=== PATIENT | female | born 1995 | race African-American/Black ===

== ENCOUNTER 2023-06-07 17:15 | Emergency (ER) | payer OTHER ==
[2023-06-07 17:26] VITALS: BP 99/65; PULSE 105; RESP 18; TEMP 98.6; BMI 27.7
[2023-06-07] MEDS ORDERED: DEXAMETHASONE SOD PHOSPHATE 10 MG/1 ML VIAL ONE (19:43)
[2023-06-07] MEDS ORDERED: ACETAMINOPHEN INJECTION 100 ML IVPB ONE (19:43)
[2023-06-07] MEDS: DEXAMETHASONE SOD PHOSPHATE 10 MG/1 ML VIAL PO ONE (19:51)
[2023-06-07] MEDS: ACETAMINOPHEN 1000 MG/100 ML BAG IVPB ONE (19:51)
[2023-06-07 19:53] LABS: BASO % 0.2 % (0-2.0); HEMATOCRIT 40.7 % (32.4-45.2); HEMOGLOBIN 13.6 GM/dL (10.7-15.3); LYMPH % 10.3 % (8-40); MCH 28.5 pg (25.7-33.7); MCHC 33.3 g/dl (32.0-36.0); MEAN CELL VOLUME 85.8 fl (80-96); MONO % 6.4 % (3.8-10.2); NEUT % 80.1 % (42.8-82.8); PLATELET COUNT 306 10^3/uL (134-434); RBC 4.75 M/mm3 (3.60-5.2); RDW 14.2 % (11.6-15.6); WHITE BLOOD COUNT 8.8 K/mm3 (4.0-10.0)
[2023-06-07 20:05] LABS: POTASSIUM 3.7 mmol/L (3.5-5.1)
[2023-06-07 20:07] LABS: ALBUMIN 3.7 g/dl (3.4-5.0); BLOOD UREA NITROGEN 9.6 mg/dL (7-18); CALCIUM 9.2 mg/dL (8.5-10.1)
[2023-06-07 20:10] LABS: CREATININE 0.9 mg/dL (0.55-1.3)
[2023-06-07 20:12] LABS: BILIRUBIN,TOTAL 0.7 mg/dL (0.2-1); TOT PROT 7.8 g/dl (6.4-8.2)
[2023-06-07] MEDS ORDERED: KETOROLAC TROMETHAMINE 15 MG/ML VIAL ONE (22:14)
[2023-06-07] MEDS: KETOROLAC TROMETHAMINE 30 MG/1 ML VIAL IM ONE (22:16)
[2023-06-07] MEDS: AMOXICILLIN 500 MG CAPSULE (FP) PO ONE (23:20)
[2023-06-07] MEDS ORDERED: CEFTRIAXONE 2 GM/100 ML BAG IVPB ONE (23:21)
[2023-06-07] MEDS: CEFTRIAXONE 2 GM in DEXTROSE 5%-WATER - 50 ML IVPB ONE (23:30)
== END 2023-06-08 01:21 | disposition home or self-care (01) ==
LOC: JER 17:15 → JERFT 17:15 → JER 06-08 01:21
PROC: 3E03329 Introduction of Other Anti-infective into Peripheral Vein, Percutaneous Approach (ICD-10-PCS; principal; 2023-06-07)
PROC: 3E030NZ Introduction of Analgesics, Hypnotics, Sedatives into Peripheral Vein, Open Approach (ICD-10-PCS; 2023-06-07)
PROC: 3E0233Z Introduction of Anti-inflammatory into Muscle, Percutaneous Approach (ICD-10-PCS; 2023-06-07)
DX: J02.0 Streptococcal pharyngitis (principal); R11.10 Vomiting, unspecified; R05.9 Cough, unspecified
CPT/HCPCS: 36415; 70491-TC; 80053; 84703; 85025; 87651; 99285-25; J0131; J1100; Q9967